=== PATIENT | male | born 2000 | race Caucasian/White ===

== ENCOUNTER 2019-10-05 19:50 | Emergency (ER) | payer OTHER ==
[~2019-10-05] VITALS: Ht 172.7 cm; Wt 93.2 kg
[2019-10-05 20:24] VITALS: BP 144/78; TEMP 99.2
[2019-10-05 20:47] VITALS: PULSE 84
== END 2019-10-05 20:47 | disposition home or self-care (01) ==
LOC: COL.ER 19:50
DX: H60.92 Unspecified otitis externa, left ear (principal); Z88.0 Allergy status to penicillin